=== PATIENT | female | born 1955 | race American Indian/Alaskan Native ===

== ENCOUNTER 2016-08-23 09:50 | Inpatient (IN) | payer BC ==
[~2016-08-23] VITALS: Ht 167.6 cm; Wt 124.0 kg
[2016-08-23 10:28] LABS: ADD SCAN DIFF NO
[2016-08-23 10:29] LABS: BASOPHILS % 0.4 % (0.0-2.0); EOSINOPHILS # 0.1 10^3/ul (0.0-0.5); EOSINOPHILS % 1.3 % (0.0-7.0); HEMATOCRIT 34.5 % (37.0-47.0); HEMOGLOBIN 11.2 g/dl (12.0-16.0); LYMPHOCYTES # 1.4 10^3/ul (0.8-2.9); MEAN CORPUSCULAR HGB CONC 32.5 g/dl (32.0-37.0); MEAN CORPUSCULAR VOLUME 86.3 fl (82.0-101.0); MEAN PLATELET VOLUME 9.9 fl (7.4-10.4); MONOCYTE # 0.4 10^3/ul (0.3-0.9); MONOCYTES % 5.1 % (0.0-11.0); NEUTROPHILS % 72.5 % (39.0-77.0); PLATELET COUNT 206 10^3/UL (140-415); RED CELL DISTRIBUTION WIDTH 12.9 % (11.5-14.5); WHITE BLOOD COUNT 6.9 10^3/ul (4.8-10.8)
[2016-08-23] MEDS ORDERED: LISI40TA9 PO (10:33)
[2016-08-23] MEDS ORDERED: METO-407 PO (10:33)
[2016-08-23] MEDS ORDERED: PRAV20TA63 PO (10:33)
[2016-08-23] MEDS ORDERED: MTF1000T PO (10:33)
[2016-08-23] MEDS ORDERED: AMLO-147 PO (10:33)
[2016-08-23] MEDS ORDERED: PUMP MISCELLANEOUS SC (10:33)
[2016-08-23] MEDS ORDERED: ASPI-664 PO (10:33)
[2016-08-23 10:54] LABS: ALBUMIN 4.1 g/dl (3.3-4.9); CHLORIDE 99 mmol/L (97-110); SODIUM 140 mmol/L (135-144)
[2016-08-23 10:55] LABS: POTASSIUM 3.8 mmol/L (3.5-5.1)
[2016-08-23 10:56] LABS: CREATININE 0.61 mg/dl (0.44-1.00)
[2016-08-23 10:57] LABS: ALANINE AMINOTRANSFERASE 74 IU/L (13-69); ALBUMIN/GLOBULIN RATIO 1.32; ALKALINE PHOSPHATASE 119 IU/L (42-121); ANION GAP 17 (8-16); ASPARTATE AMINO TRANSFERASE 31 IU/L (15-46); BILIRUBIN,INDIRECT 0.8 mg/dl (0-1.1); BILIRUBIN,TOTAL 0.8 mg/dl (0.2-1.3); BLOOD UREA NITROGEN 14 mg/dl (7-20); CALCIUM 8.8 mg/dl (8.4-10.2); CARBON DIOXIDE 28 mmol/L (21-31); GLUCOSE 197 mg/dl (70-220); TOTAL PROTEIN 7.2 g/dl (6.1-8.1)
[2016-08-23] MEDS ORDERED: FUROSEMIDE 40 MG INJ IV ONE (11:00)
[2016-08-23] MEDS ORDERED: ASPIRIN 81 MG TAB PO ONE (11:00)
[2016-08-23] MEDS ORDERED: ENALAPRILAT 1.25 MG INJ IV ONE (11:00)
--- NOTE | 2016-08-23 11:20 | RADRPT ---
PROCEDURE: XR Chest 1 view. CLINICAL INDICATION: Shortness of breath. TECHNIQUE: AP views of the chest were obtained. COMPARISON: None. FINDINGS: The heart is large. Calcified atherosclerosis is noted in the aorta. Central pulmonary vascular con gestion and interstitial prominence is seen in both lungs. Patchy infiltrates are noted in the righ t lower lobe and may be combined with small pleural effusion. Scattered atelectasis is seen in the left lower lobe. Osseous structures are intact. IMPRESSION: Cardiomegaly with calcified atherosclerosis in the aorta. Central pulmonary vascular congestion and interstitial prominence in both lungs. Patchy infiltrates in the right lower lobe, possibly combined small pleural effusion. Scattered atelectasis in the left lower lobe. RPTAT: AA .Jai Godinez MD, Date Time Electronically viewed and signed by .Jai Godinez MD, MD on 08/23/2016 11:20 .P/
[2016-08-23 11:23] LABS: TROPONIN-I < 0.012 ng/ml (0.00-0.12)
--- NOTE | 2016-08-23 12:36 | ERA ---
ER Documentation Chief Complaint Date/Time DATE: 08/23/16 TIME: 12:35 Chief Complaint CHEST PAIN . SOB X 3 DAYS HPI 61-year-old woman presents with 1 week of increased lower extremity swelling, pressure-like chest pain 2 days which is been nonradiating and nonexertional and intermittent episodes of shortness of breath and dyspnea on exertion. Patient states respiratory symptoms have been present for about 1-2 weeks and she is also experienced orthopnea and paroxysmal nocturnal dyspnea. Patient denies history of CHF. Patient denies fevers or chills, no vomiting or diarrhea. ROS All systems reviewed and are negative except as per history of present illness. Medications Home Meds Reported Medications Miscellaneous* PUMP (Miscellaneous* PUMP) 1 Each Pump.resvr, 44 UNITS SC Basaglar @Hs, EA 08/23/16 Metoprolol Tartrate* (Lopressor*) 100 Mg Tablet, 100 MG PO BID, #60 TAB 08/23/16 Amlodipine Besylate* (Amlodipine Besylate*) 10 Mg Tablet, 10 MG PO DAILY, #30 TAB 08/23/16 Aspirin* (Aspirin* (EC)) 81 Mg Tablet.dr, 81 MG PO DAILY, TAB 08/23/16 Lisinopril* (Lisinopril*) 40 Mg Tablet, 40 MG PO DAILY, #30 TAB 08/23/16 Pravastatin Sodium* (Pravastatin Sodium*) 20 Mg Tablet, 20 MG PO HS, TAB 08/23/16 Metformin* (Glucophage*) 1,000 Mg Tablet, 1000 MG PO WITH BREAKFAST DINNE, #60 TAB 08/23/16 Allergies Allergies: Coded Allergies: No Known Allergy (Unverified , 08/23/16) PMhx/Soc Morbid obesity, hypertension, diabetes mellitus, hypercholesterolemia History of Surgery: No Anesthesia Reaction: No Hx Neurological Disorder: No Hx Respiratory Disorders: No Hx Cardiac Disorders: Yes (HIGH CHOLESTEROL, HTN) Hx Psychiatric Problems: No Hx Miscellaneous Medical Probl: Yes (DM) Hx Alcohol Use: No Hx Substance Use: No Hx Tobacco Use: No Smoking Status: Never smoker FmHx Family History: diabetes Physical Exam Vitals Vital Signs Date Time Temp Pulse Resp B/P Pulse Ox O2 Delivery O2 Flow Rate FiO2 08/23/16 09:56 98.1 81 18 196/85 96 Physical Exam GENERAL: Well-developed, well-nourished, dyspneic, afebrile HEENT: Moist mucous membranes, pink conjunctiva, no cervical spine tenderness or step-off deformities, no goiter, no jaundice or icterus, extraocular movements intact without pain. No submandibular induration, and no pharyngeal erythema NEURO: Alert and oriented 3, cranial nerves II through XII intact bilaterally, pupils equal round reactive to light, no focal deficits or facial asymmetry, sensation intact distally Strength 5/5 in upper and lower extremities bilaterally CARDIAC: Regular rate and rhythm, no murmurs rubs or gallops LUNGS: Bilateral crackles and poor entry bilaterally, no wheezing or stridor ABDOMEN: Soft nontender, no guarding, no rigidity, no rebound, no psoas sign no obturator sign. Normoactive bowel sounds SKIN: Warm and dry to touch, no abrasions, contusions, or hematomas, no lacerations, no ecchymosis, no target lesions, and without ulcers EXTREMITIES: No clubbing cyanosis, 3+ pitting edema in the lower extremities bilaterally, no Homans sign, no popliteal cord sign. Distal pulses equal and bilateral PSYCH: Normal affect without agitation or irritability Result Diagram: 08/23/16 1017 08/23/16 1017 Results 24 hrs Laboratory Tests Test 08/23/16 10:17 White Blood Count 6.910^3/ul Red Blood Count 4.0010^6/ul Hemoglobin 11.2g/dl Hematocrit 34.5% Mean Corpuscular Volume 86.3fl Mean Corpuscular Hemoglobin 28.0pg Mean Corpuscular Hemoglobin Concent 32.5g/dl Red Cell Distribution Width 12.9% Platelet Count 22982^3/UL Mean Platelet Volume 9.9fl Neutrophils % 72.5% Lymphocytes % 20.0% Monocytes % 5.1% Eosinophils % 1.3% Basophils % 0.4% Nucleated Red Blood Cells % 0.0/100WBC Neutrophils # 5.010^3/ul Lymphocytes # 1.410^3/ul Monocytes # 0.410^3/ul Eosinophils # 0.110^3/ul Basophils # 0.010^3/ul Nucleated Red Blood Cells # 0.010^3/ul Sodium Level 140mmol/L Potassium Level 3.8mmol/L Chloride Level 99mmol/L Carbon Dioxide Level 28mmol/L Anion Gap 17 Blood Urea Nitrogen 14mg/dl Creatinine 0.61mg/dl Glucose Level 197mg/dl Calcium Level 8.8mg/dl Total Bilirubin 0.8mg/dl Direct Bilirubin 0.00mg/dl Indirect Bilirubin 0.8mg/dl Aspartate Amino Transf (AST/SGOT) 31IU/L Alanine Aminotransferase (ALT/SGPT) 74IU/L Alkaline Phosphatase 119IU/L Troponin I < 0.012ng/ml Total Protein 7.2g/dl Albumin 4.1g/dl Globulin 3.10g/dl Albumin/Globulin Ratio 1.32 Lipase 54U/L Current Medications Medications (Trade) Dose Ordered Sig/Haley Route PRN Reason Start Time Stop Time Status Last Admin Dose Admin Aspirin (Aspirin) 324 mg ONCE ONCE PO 08/23/16 11:00 08/23/16 11:01 DC 08/23/16 10:50 Furosemide (Lasix) 80 mg ONCE ONCE IV 08/23/16 11:00 08/23/16 11:01 DC 08/23/16 10:49 Enalaprilat (Vasotec Iv) 1.25 mg ONCE ONCE IV 08/23/16 11:00 08/23/16 11:01 DC 08/23/16 10:50 Procedures/MDM IV line was established patient was placed on cardiac monitor technician rhythm strip revealed a sinus rhythm at about 80 bpm with upright P and T waves. Patient was afebrile. EKG performed, read by me: 75 bpm, normal sinus rhythm, normal axis, no acute ST segment changes, narrow QRS complex, with good R-wave progression in precordial leads. I administered aspirin 324 mg p.o. for cardioprotective measures have enalapril 1.25 mg IV for hypertension. Patient also received furosemide 80 mg IV 1 for diuresis. CBC and electrolytes were unremarkable, liver function tests are normal, troponin was negative, BNP about 600 and elevated, thyroid panel normal. Patient will be admitted to telemetry setting for continued medical management cardiology consultation. Blood pressure improved. Departure Diagnosis: Primary Impression: Chest pain Qualified Code: R07.9 - Chest pain, unspecified type Additional Impressions: Hypertension Qualified Code: I10 - Essential hypertension CHF (congestive heart failure) Qualified Code: I50.21 - Acute systolic congestive heart failure Condition: PARKER Castro MD August 23, 2016 12:36
[2016-08-23 12:57] VITALS: TEMP 98.3
[2016-08-23 13:36] LABS: FREE T3 4.47 pg/ml (2.77-5.27)
[2016-08-23 13:50] LABS: THYROID STIMULATING HORMONE 1.67 MIU/L (0.465-4.680)
[2016-08-23 14:07] VITALS: BP 153/64; PULSE 73; RESP 18
[2016-08-23 14:08] VITALS: Ht 167.6 cm; Wt 124.0 kg
[2016-08-23] MEDS ORDERED: ACETAMINOPHEN 325 MG TAB PO PRN (15:00)
[2016-08-23] MEDS ORDERED: LISINOPRIL 10 MG TAB PO SCH (15:00)
[2016-08-23] MEDS ORDERED: GLUCOSE GEL 15 GRAM TUBE PO PRN ×2 (16:00)
[2016-08-23] MEDS ORDERED: GLUCOSE GEL 15 GRAM TUBE BUCCAL PRN (16:00)
[2016-08-23] MEDS ORDERED: DEXTROSE 50% 50 ML SYRINGE IV PRN ×2 (16:00)
[2016-08-23] MEDS ORDERED: GLUCAGON 1 MG INJ IM PRN (16:00)
[2016-08-23 16:16] VITALS: PULSE 61
[2016-08-23 16:58] VITALS: BP 151/67; RESP 18
[2016-08-23] MEDS: INSULIN ASPART [NOVOLOG] 3 ML PEN SC SCH ×2 (17:13→21:28)
[2016-08-23] MEDS: metFORMIN 500 MG TAB PO SCH (18:37)
[2016-08-23] MEDS: FUROSEMIDE 20 MG INJ IV SCH (18:37)
[2016-08-23 20:03] VITALS: BP 145/61; RESP 19
[2016-08-23 20:19] VITALS: PULSE 65
[2016-08-23] MEDS: METOPROLOL 100 MG TAB PO SCH (21:25)
[2016-08-23] MEDS: ATORVASTATIN 10 MG TAB PO SCH (21:25)
[2016-08-23] MEDS: POTASSIUM CHLORIDE (SR) 20 MEQ TAB PO SCH (21:25)
[2016-08-23] MEDS: INSULIN GLARGINE [LANtus] 3 ML PEN SC SCH (21:33)
--- NOTE | 2016-08-23 22:31 | HP ---
DATE OF ADMISSION: 08/23/2016 CHIEF COMPLAINT: Chest pain and shortness of breath. HISTORY OF PRESENT ILLNESS: The patient is a 61-year-old morbidly obese female with BMI of 44.1. T he patient has history of hypertension, diabetes and dyslipidemia, came to ER with increasing shortn ess of breath and chest pain for about 3 days. The patient reported the chest pain was mostly exert ional and was in anterior upper chest. The patient reported the symptoms got worse this morning, an d therefore she decided to come to ER. The patient had a negative troponin, negative EKG for any ac [place] ST or T changes. Chest x-ray was positive for CHF. The patient was given IV Lasix and also rec eived aspirin. The patient seems to have gotten better and currently says that she has no chest cali n. The patient did have mild orthopnea. No reported paroxysmal nocturnal dyspnea, although patient did have increasing leg edema for last few days. The patient denied any history of fever or chills . No history of headache, dizziness, syncope. No history of abdominal pain. No history of resting leg pain. No history of any focal weakness. No history of fever or chills. No history of dysuria or hematuria. Rest of the review of systems was unremarkable. PAST SURGICAL HISTORY: The patient is status post right breast biopsy which was benign. The patien t also had some sort of gynecological surgery for urinary incontinence. ALLERGIES: NONE. SOCIAL HISTORY: No smoking, no alcohol. FAMILY HISTORY: The patient's father of lung cancer. Mother had some cardiac issues, but she could not specify. PHYSICAL EXAMINATION: GENERAL: The patient is conscious, awake, alert. VITAL SIGNS: Temperature 98.6, pulse 65, respirations 18, blood pressure 151/67, O2 saturation 95% on room air. HEENT: Atraumatic, normocephalic. Conjunctivae and lids normal. Oropharynx clear. NECK: Supple. No mass, no thyromegaly. CHEST: Diminished air entry at bases. No use of accessory muscles. CARDIOVASCULAR: S1, S2 normal. No murmur. ABDOMEN: Soft, obese. EXTREMITIES: Bilateral edema. Pedal pulses palpable. SKIN: Without acute rash. NEUROLOGIC: The patient is awake, alert, fairly oriented with no gross focal deficit. LABORATORY DATA: WBC 6.9, hemoglobin 9.2, platelets 206. Chemistry: Sodium ____, potassium 3.8, B UN 14, creatinine 0.6. Random glucose 197, repeat glucose 121. BNP 568. Troponin negative. TSH 1 .6. Lipid panel pending. Echo pending. IMPRESSION: 1. Chest pain, rule out myocardial infarction. 2. Congestive heart failure. 3. Hypertension. 4. Diabetes mellitus. 5. Hyperlipidemia. 6. Obesity. PLAN: The patient admitted on telemetry floor. The patient will be started on aspirin, Coreg, neha nopril and IV Lasix. Will use Lovenox for DVT prophylaxis. Will put her on sliding scale insulin a nd Glucophage. Will continue statins and will obtain lipid panel. Will obtain echocardiogram to as sess LV function and valvular function. Further recommendation will depend on patient's hospital co urse and recommendation from Dr. Curry, who will be consulted from cardiology standpoint. Dictated By: ESPERANZA SAMPSON/BRISEIDA Conf#: [id number] DID#: [id number]
[2016-08-24] VITALS (12 sets, daily range): BP systolic 118–154; BP diastolic 43–68; PULSE 52–61; RESP 18–20
[2016-08-24] MEDS: ACCU-CHEK XX SCH (02:00)
--- NOTE | 2016-08-24 03:11 | CONS ---
DATE OF ADMISSION: 08/23/2016 DATE OF CONSULTATION: 08/23/2016 TYPE OF CONSULTATION: Cardiology. REASON FOR CONSULTATION: Congestive heart failure exacerbation as well as chest pain. REQUESTING PHYSICIAN: Esperanza Damon MD HISTORY OF PRESENT ILLNESS: Ms. Alvarez is a 61-year-old female with a history of hypertension , dyslipidemia, diabetes mellitus who presented with 2 days of worsening lower extremity edema, dysp anupam on minimal exertion and substernal chest pain, per ER note describes a pressure-like sensation b ut per my description and conversation with patient a burning sensation at rest. Upon arrival, temp erature 98.1, blood pressure markedly elevated at 196/85, pulse 81, respiratory rate 18, satting 96% . The patient's labs: A white cell count of 6.9, hemoglobin 11.2, platelet count of 206. Sodium o f 140, potassium 3.8, creatinine 0.6, BUN 14. Troponin negative. BNP 568. TSH of 1.67, free T4 of 1.28. The patient underwent a chest x-ray revealing cardiomegaly, calcified atherosclerosis in the aorta, central pulmonary vascular congestion, ____ prominence of both lungs, patchy infiltrates in the right lower lobe, possibly combined small pleural effusion ____ in left lower lobe. The patient 's electrocardiogram with normal sinus rhythm, rate of 75, normal axis, normal intervals, anterior T -wave inversion. The patient was subsequently admitted to the floor and since admit to the floor de nies ongoing chest pain. PAST MEDICAL HISTORY: As above in HPI. MEDICATIONS CURRENTLY IN HOSPITAL: 1. Lovenox ____ mg subcutaneous daily. 2. Aspirin 325 mg daily. 3. Norvasc 10 mg daily. 4. Lisinopril 40 mg daily. 5. Potassium chloride 20 mEq b.i.d. 6. Metoprolol 100 mg b.i.d. 7. Lantus 44 units at bedtime. 8. Lipitor 10 mg daily. 9. Insulin sliding scale. 10. Metformin. 11. Lasix 20 mg IV b.i.d. 12. Tylenol p.r.n. ALLERGIES: NO KNOWN DRUG ALLERGIES. SOCIAL HISTORY: No tobacco, ETOH, illicit drug use. FAMILY HISTORY: No history of sudden cardiac or early CAD. REVIEW OF SYSTEMS: As above in HPI. CONSTITUTIONAL: No fevers, chills. PULMONARY: No current shortness of breath. CARDIOVASCULAR: Intermittent chest pain, dyspnea on exertion. GASTROINTESTINAL: No vomiting. GENITOURINARY: No hematuria. MUSCULOSKELETAL: Degenerative joint disease. PSYCHIATRIC: The patient denies depression. NEUROLOGIC: No documented history of CVA. PHYSICAL EXAMINATION: VITAL SIGNS: Temperature of 98, blood pressure most recently 151/67, pulse 65, respiratory rate 18, satting 95%. GENERAL: The patient is alert, awake, complaining of mild shortness of breath. NECK: JVP approximately 9 cm water. CHEST: Decreased breath sounds at base bilaterally. HEART: Regular rate, rhythm. Normal S1, S2. I/ systolic murmur. ABDOMEN: Positive bowel sounds. Soft. EXTREMITIES: Trace edema. Pulses 1+ bilaterally at posterior tibial. LABORATORY DATA: As above in HPI. No further labs for my review at this time. IMAGING STUDIES: As above in HPI. No further imaging studies for my review at this time. ELECTROCARDIOGRAM: As above in HPI. No further electrocardiograms for my review at this time. IMPRESSION: 1. Congestive heart failure exacerbation, question systolic versus diastolic, likely acute on chron ic. 2. Hypertension. 3. Chest pain, assess for acute coronary syndrome with pain resolved at this time, negative troponi n x1. 4. Possible associated pneumonia by chest x-ray. 5. Increased BNP consistent with congestive heart failure exacerbation. 6. Dyslipidemia, on statin therapy. 7. Hypertension, mildly elevated. 8. Diabetes mellitus. 9. Anemia. RECOMMENDATIONS: 1. At this time would maintain patient on telemetry monitoring to follow rhythm and rate control cl osely. 2. Would continue the patient's current aspirin for prophylaxis against cardiovascular events. 3. Continue the patient's current Norvasc, Zestril and metoprolol, following heart rate and blood p ressure closely. 4. Continue the patient's current statin therapy and adjust it according to a [facility]. 5. Will complete a rule-out for myocardial infarction, ensure that the patient's EKG abnormalities are chronic in nature and not due to any recent acute coronary syndrome such as acute myocardial inf arction. 6. Check a 2D echocardiogram to further assess the patient's ejection fraction, wall motion, rule o ut any major valve abnormalities. 7. Will follow the patient's blood pressure on increased doses of lisinopril and beta azael, have been was written for today, significantly increased doses, as well as Norvasc. 8. Would continue the patient's Lasix diuresis, following strict I's and O's and creatinine to grad e diuresis closely. 9. When patient's volume status improves and the patient is able to lie flat, will consider stress testing this patient to further assess significance of chest pain and would consider possibility of antibiotic therapy in this patient with possible associated pneumonia as well by chest x-ray. Thank you for allowing me to take part in the care of this patient. I will continue to follow along very closely with you with further recommendations to be made as the patient progresses through her inpatient hospital clinical course. Dictated By: CHANTAL LAW/BRISEIDA Conf#: [id number] DID#: [id number] CC: ESPERANZA DAMON MD;*EndCC*
[2016-08-24] MEDS: FUROSEMIDE 20 MG INJ IV SCH ×2 (05:17→17:15)
[2016-08-24] MEDS: ASPIRIN 325 MG TAB PO SCH (08:10)
[2016-08-24] MEDS: LISINOPRIL 20 MG TAB PO SCH (08:10)
[2016-08-24] MEDS: metFORMIN 500 MG TAB PO SCH ×2 (08:10→17:15)
[2016-08-24] MEDS: POTASSIUM CHLORIDE (SR) 20 MEQ TAB PO SCH ×2 (08:10→20:45)
[2016-08-24] MEDS: ENOXAPARIN 40 MG/0.4 ML SYG SC SCH (08:11)
[2016-08-24] MEDS: METOPROLOL 100 MG TAB PO SCH ×2 (08:12→20:46)
[2016-08-24] MEDS: AMLODIPINE 10 MG TAB PO SCH (08:12)
[2016-08-24] MEDS: INSULIN ASPART [NOVOLOG] 3 ML PEN SC SCH ×4 (08:12→20:47)
[2016-08-24 08:37] LABS: ADD SCAN DIFF NO
[2016-08-24 08:51] LABS: BASOPHILS % 0.3 % (0.0-2.0); EOSINOPHILS # 0.1 10^3/ul (0.0-0.5); EOSINOPHILS % 1.3 % (0.0-7.0); HEMATOCRIT 37.3 % (37.0-47.0); HEMOGLOBIN 11.6 g/dl (12.0-16.0); LYMPHOCYTES # 1.2 10^3/ul (0.8-2.9); MEAN CORPUSCULAR HEMOGLOBIN 27.2 pg (29.0-33.0); MEAN CORPUSCULAR HGB CONC 31.1 g/dl (32.0-37.0); MEAN CORPUSCULAR VOLUME 87.4 fl (82.0-101.0); MEAN PLATELET VOLUME 10.2 fl (7.4-10.4); MONOCYTE # 0.3 10^3/ul (0.3-0.9); MONOCYTES % 4.9 % (0.0-11.0); NEUTROPHIL # 4.7 10^3/ul (1.6-7.5); NEUTROPHILS % 74.2 % (39.0-77.0); PLATELET COUNT 248 10^3/UL (140-415); RED BLOOD COUNT 4.27 10^6/ul (4.20-5.40); RED CELL DISTRIBUTION WIDTH 13.3 % (11.5-14.5); WHITE BLOOD COUNT 6.4 10^3/ul (4.8-10.8)
[2016-08-24] MEDS ORDERED: ASPIRIN (EC) 81 MG TAB PO SCH (09:00)
[2016-08-24 09:25] LABS: ALANINE AMINOTRANSFERASE 66 IU/L (13-69); ALBUMIN 4.2 g/dl (3.3-4.9); ALBUMIN/GLOBULIN RATIO 1.35; ALKALINE PHOSPHATASE 118 IU/L (42-121); ANION GAP 13 (8-16); ASPARTATE AMINO TRANSFERASE 32 IU/L (15-46); BILIRUBIN,INDIRECT 1.1 mg/dl (0-1.1); BILIRUBIN,TOTAL 1.1 mg/dl (0.2-1.3); BLOOD UREA NITROGEN 17 mg/dl (7-20); CALCIUM 9.3 mg/dl (8.4-10.2); CARBON DIOXIDE 33 mmol/L (21-31); CHLORIDE 95 mmol/L (97-110); CHOL/HDL RATIO 5.1 RATIO; CHOLESTEROL 196 mg/dl (100-200); CREATININE 0.68 mg/dl (0.44-1.00); GLUCOSE 189 mg/dl (70-220); HDL CHOLESTEROL 38 mg/dl (35-98); POTASSIUM 4.2 mmol/L (3.5-5.1); SODIUM 137 mmol/L (135-144); TOTAL PROTEIN 7.3 g/dl (6.1-8.1); TRIGLYCERIDES 173 mg/dl (0-149)
[2016-08-24 09:27] LABS: TROPONIN-I < 0.012 ng/ml (0.00-0.12)
--- NOTE | 2016-08-24 10:19 | CONS ---
Date/Time of Note Date/Time of Note DATE: 08/24/16 TIME: 10:17 Assessment/Plan Assessment/Plan Additional Assessment/Plan 1. Congestive heart failure exacerbation, question systolic versus diastolic, likely acute on chronic- con't gentle diuresis, better overall. 2. Hypertension - still on high side, will add therapy now. 3. Chest pain, assess for acute coronary syndrome with pain resolved at this time, negative troponin x1. 4. Possible associated pneumonia by chest x-ray- anti-bx to follow. 5. Increased BNP consistent with congestive heart failure exacerbation. 6. Dyslipidemia, on statin therapy. 7. Hypertension, mildly elevated. 8. Diabetes mellitus. 9. Anemia. Consultation Date/Type/Reason Admit Date/Time August 23, 2016 at 12:20 Initial Consult Date 24 HR Interval Summary Free Text/Dictation NO acute change - stable on tele - con't to adjust Rx - stable urine output. ROS: No fever, no chills, no nausea, no vomiting, no diarrhea/constipation No recent weight changes No chest pain, no PND, no orthopnea No dizziness, blurred vision No thirst, no heat or cold intolerance Exam/Review of Systems Vital Signs Vitals Vital Signs Date Time Temp Pulse Resp B/P Pulse Ox O2 Delivery O2 Flow Rate FiO2 08/24/16 08:36 52 08/24/16 08:05 98.2 18 154/68 91 08/23/16 14:07 Room Air Intake and Output 08/23/16 08/23/16 08/24/16 15:00 23:00 07:00 Intake Total 250 ml 500 ml Balance 250 ml 500 ml Exam General: WN/WD/NAD, AOx 2-3 HEENT: Unicetric/atraumatic/EOMI (follows commands) NECK: JVD elevated, no thyromegaly Lymph: no lymphadenopathy HEART: regular with no S3, II/ systolic murmur at apex LUNGS: Coarse sounds ABD: soft, NT, ND, +BS : Intact Neuro: non focal SKIN: chronic changes EXT: trace edema Results Result Diagram: 08/24/16 0750 08/24/16 0750 Results 24 hrs Laboratory Tests Test 08/23/16 12:49 08/23/16 17:07 08/23/16 19:56 08/23/16 20:09 B-Type Natriuretic Peptide 568 H 510 H Thyroid Stimulating Hormone (TSH) 1.670 Free Thyroxine 1.28 Free Triiodothyronine (T3) pg/mL 4.47 Bedside Glucose 121 203 Troponin I < 0.012 Test 08/24/16 02:18 08/24/16 07:50 08/24/16 08:08 Bedside Glucose 144 186 White Blood Count 6.4 Red Blood Count 4.27 Hemoglobin 11.6 L Hematocrit 37.3 Mean Corpuscular Volume 87.4 Mean Corpuscular Hemoglobin 27.2 L Mean Corpuscular Hemoglobin Concent 31.1 L Red Cell Distribution Width 13.3 Platelet Count 248 # Mean Platelet Volume 10.2 Neutrophils % 74.2 Lymphocytes % 19.0 Monocytes % 4.9 Eosinophils % 1.3 Basophils % 0.3 Nucleated Red Blood Cells % 0.0 Neutrophils # 4.7 Lymphocytes # 1.2 Monocytes # 0.3 Eosinophils # 0.1 Basophils # 0.0 Nucleated Red Blood Cells # 0.0 Sodium Level 137 Potassium Level 4.2 Chloride Level 95 L Carbon Dioxide Level 33 H Anion Gap 13 Blood Urea Nitrogen 17 Creatinine 0.68 Glucose Level 189 Calcium Level 9.3 Total Bilirubin 1.1 Direct Bilirubin 0.00 Indirect Bilirubin 1.1 Aspartate Amino Transf (AST/SGOT) 32 Alanine Aminotransferase (ALT/SGPT) 66 Alkaline Phosphatase 118 Troponin I < 0.012 Total Protein 7.3 Albumin 4.2 Globulin 3.10 Albumin/Globulin Ratio 1.35 Triglycerides Level 173 H Cholesterol Level 196 LDL Cholesterol, Calculated 123 HDL Cholesterol 38 Cholesterol/HDL Ratio 5.1 Medications Medications Current Medications Potassium Chloride (Klor-Con 20) 20 meq BID PO Last administered on 08/24/16 08 :10; Admin Dose 20 MEQ; Start 08/23/16 at 21:00 Enoxaparin Sodium (Lovenox) 40 mg DAILY SC Last administered on 08/24/16 08:11 ; Admin Dose 40 MG; Start 08/24/16 at 09:00 Aspirin (Aspirin) 325 mg DAILY PO Last administered on 08/24/16 08:10; Admin Dose 325 MG; Start 08/24/16 at 09:00 Acetaminophen (Tylenol Tab) 650 mg Q4H PRN PO PAIN AND OR ELEVATED TEMP; Start 08/23/16 at 15:00 Diagnostic Test (Pha) (Accu-Chek) 1 ea 02 XX ; Start 08/24/16 at 02:00 Miscellaneous Information 1 ea NOTE XX ; Start 08/23/16 at 16:00 Glucose (Glutose) 15 gm Q15M PRN PO DECREASED GLUCOSE; Start 08/23/16 at 16:00 Glucose (Glutose) 22.5 gm Q15M PRN PO DECREASED GLUCOSE; Start 08/23/16 at 16:00 Dextrose (D50w Syringe) 25 ml Q15M PRN IV DECREASED GLUCOSE; Start 08/23/16 at 16:00 Dextrose (D50w Syringe) 50 ml Q15M PRN IV DECREASED GLUCOSE; Start 08/23/16 at 16:00 Glucagon (Glucagen) 1 mg Q15M PRN IM DECREASED GLUCOSE; Start 08/23/16 at 16:00 Glucose (Glutose) 15 gm Q15M PRN BUCCAL DECREASED GLUCOSE; Start 08/23/16 at 16: 00 Amlodipine Besylate (Norvasc) 10 mg DAILY PO Last administered on 08/24/16 08: 12; Admin Dose 10 MG; Start 08/24/16 at 09:00 Lisinopril (Zestril) 40 mg DAILY PO Last administered on 08/24/16 08:10; Admin Dose 40 MG; Start 08/24/16 at 09:00 Metoprolol Tartrate (Lopressor) 100 mg BID PO Last administered on 08/24/16 08: 12; Admin Dose 100 MG; Start 08/23/16 at 21:00 Insulin Glargine (Lantus) 44 unit HS SC Last administered on 08/23/16 21:33; Admin Dose 44 UNIT; Start 08/23/16 at 21:00 Atorvastatin Calcium (Lipitor) 10 mg DAILY@21 PO Last administered on 08/23/16 21:25; Admin Dose 10 MG; Start 08/23/16 at 21:00 RUSTAM HOLLIS MD August 24, 2016 10:19
[2016-08-24] MEDS ORDERED: FUROSEMIDE 20 MG INJ IV ONE (10:30)
--- NOTE | 2016-08-24 14:12 | RADRPT ---
Vent Rate: 57 bpm RR Interval: 0 msec ID Interval: 194 msec QRS Duration: 102 msec QT Interval: 494 msec QTC Interval: 480 msec P-R-T [place]: 45 - 17 - 42 degrees Sinus bradycardia Nonspecific T wave abnormality Prolonged QT Abnormal ECG Electronically Signed By: Floyd Ramirez [id number]
--- NOTE | 2016-08-24 19:15 | PN ---
Date/Time of Note Date/Time of Note DATE: 08/24/16 TIME: 19:12 Assessment/Plan VTE Prophylaxis VTE Prophylaxis Intervention: SCD's Lines/Catheters IV [facility]ter Type (from [facility] Saline Lock Urinary Cath still in place: No Assessment/Plan Assessment/Plan 1. Chest pain, rule out myocardial infarction. Troponin is negative 2. Dr. Curry is following and cardiology consultation. 2. Congestive heart failure. Continue Lasix monitor electrolytes. 3. Hypertension. Continue Lopressor lisinopril and Norvasc. 4. Diabetes mellitus. Continue metformin Lantus and NovoLog. 5. Hyperlipidemia. Continue statins. 6. Obesity. Further recommendations based on clinical course. End of care discussed with Dr. Damon. Subjective 24 Hr Interval Summary Free Text/Dictation Patient denies chest pain denies short of breath. Exam/Review of Systems Vital Signs Vitals Vital Signs Date Time Temp Pulse Resp B/P Pulse Ox O2 Delivery O2 Flow Rate FiO2 08/24/16 17:40 60 08/24/16 15:57 98.1 18 140/60 99 08/23/16 14:07 Room Air Intake and Output 08/23/16 08/23/16 08/24/16 15:00 23:00 07:00 Intake Total 250 ml 500 ml Balance 250 ml 500 ml Exam Constitutional: alert, obese, oriented Psych: no complaints Head: atraumatic, normocephalic Eyes: nl conjunctiva ENMT: nl external ears & nose Neck: non-tender, supple Respiratory: clear to auscultation Cardiovascular: nl pulses, regular rate and rhythm Gastrointestinal: non-tender, soft Musculoskeletal: nl extremities to inspection Extremities: normal pulses Neurological: BACON STRINGER II-XII intact Results Result Diagram: 08/24/16 0750 08/24/16 0750 Results 24 hrs Laboratory Tests Test 08/23/16 19:56 08/23/16 20:09 08/24/16 02:18 08/24/16 07:50 Troponin I < 0.012 < 0.012 B-Type Natriuretic Peptide 510 H Bedside Glucose 203 144 White Blood Count 6.4 Red Blood Count 4.27 Hemoglobin 11.6 L Hematocrit 37.3 Mean Corpuscular Volume 87.4 Mean Corpuscular Hemoglobin 27.2 L Mean Corpuscular Hemoglobin Concent 31.1 L Red Cell Distribution Width 13.3 Platelet Count 248 # Mean Platelet Volume 10.2 Neutrophils % 74.2 Lymphocytes % 19.0 Monocytes % 4.9 Eosinophils % 1.3 Basophils % 0.3 Nucleated Red Blood Cells % 0.0 Neutrophils # 4.7 Lymphocytes # 1.2 Monocytes # 0.3 Eosinophils # 0.1 Basophils # 0.0 Nucleated Red Blood Cells # 0.0 Sodium Level 137 Potassium Level 4.2 Chloride Level 95 L Carbon Dioxide Level 33 H Anion Gap 13 Blood Urea Nitrogen 17 Creatinine 0.68 Glucose Level 189 Hemoglobin A1c 8.1 H Calcium Level 9.3 Total Bilirubin 1.1 Direct Bilirubin 0.00 Indirect Bilirubin 1.1 Aspartate Amino Transf (AST/SGOT) 32 Alanine Aminotransferase (ALT/SGPT) 66 Alkaline Phosphatase 118 Total Protein 7.3 Albumin 4.2 Globulin 3.10 Albumin/Globulin Ratio 1.35 Triglycerides Level 173 H Cholesterol Level 196 LDL Cholesterol, Calculated 123 HDL Cholesterol 38 Cholesterol/HDL Ratio 5.1 Test 08/24/16 08:08 08/24/16 12:19 08/24/16 17:13 Bedside Glucose 186 180 240 H Medications Medications Current Medications Potassium Chloride (Klor-Con 20) 20 meq BID PO Last administered on 08/24/16 08 :10; Admin Dose 20 MEQ; Start 08/23/16 at 21:00 Enoxaparin Sodium (Lovenox) 40 mg DAILY SC Last administered on 08/24/16 08:11 ; Admin Dose 40 MG; Start 08/24/16 at 09:00 Aspirin (Aspirin) 325 mg DAILY PO Last administered on 08/24/16 08:10; Admin Dose 325 MG; Start 08/24/16 at 09:00 Acetaminophen (Tylenol Tab) 650 mg Q4H PRN PO PAIN AND OR ELEVATED TEMP; Start 08/23/16 at 15:00 Diagnostic Test (Pha) (Accu-Chek) 1 ea 02 XX ; Start 08/24/16 at 02:00 Miscellaneous Information 1 ea NOTE XX ; Start 08/23/16 at 16:00 Glucose (Glutose) 15 gm Q15M PRN PO DECREASED GLUCOSE; Start 08/23/16 at 16:00 Glucose (Glutose) 22.5 gm Q15M PRN PO DECREASED GLUCOSE; Start 08/23/16 at 16:00 Dextrose (D50w Syringe) 25 ml Q15M PRN IV DECREASED GLUCOSE; Start 08/23/16 at 16:00 Dextrose (D50w Syringe) 50 ml Q15M PRN IV DECREASED GLUCOSE; Start 08/23/16 at 16:00 Glucagon (Glucagen) 1 mg Q15M PRN IM DECREASED GLUCOSE; Start 08/23/16 at 16:00 Glucose (Glutose) 15 gm Q15M PRN BUCCAL DECREASED GLUCOSE; Start 08/23/16 at 16: 00 Amlodipine Besylate (Norvasc) 10 mg DAILY PO Last administered on 08/24/16 08: 12; Admin Dose 10 MG; Start 08/24/16 at 09:00 Lisinopril (Zestril) 40 mg DAILY PO Last administered on 08/24/16 08:10; Admin Dose 40 MG; Start 08/24/16 at 09:00 Metoprolol Tartrate (Lopressor) 100 mg BID PO Last administered on 08/24/16 08: 12; Admin Dose 100 MG; Start 08/23/16 at 21:00 Insulin Glargine (Lantus) 44 unit HS SC Last administered on 08/23/16 21:33; Admin Dose 44 UNIT; Start 08/23/16 at 21:00 Atorvastatin Calcium (Lipitor) 10 mg DAILY@21 PO Last administered on 08/23/16 21:25; Admin Dose 10 MG; Start 08/23/16 at 21:00 STU SAWANT August 24, 2016 19:15
[2016-08-24] MEDS: ATORVASTATIN 10 MG TAB PO SCH (20:45)
[2016-08-24] MEDS: INSULIN GLARGINE [LANtus] 3 ML PEN SC SCH (20:47)
[2016-08-25] VITALS (12 sets, daily range): BP systolic 116–176; BP diastolic 45–76; PULSE 50–59; RESP 17–18
[2016-08-25] MEDS: ACCU-CHEK XX SCH (02:00)
[2016-08-25] MEDS: FUROSEMIDE 20 MG INJ IV SCH ×2 (05:31→17:04)
[2016-08-25 07:36] LABS: ADD SCAN DIFF NO
[2016-08-25 07:52] LABS: BASOPHILS % 0.4 % (0.0-2.0); EOSINOPHILS # 0.1 10^3/ul (0.0-0.5); HEMATOCRIT 39.2 % (37.0-47.0); HEMOGLOBIN 12.3 g/dl (12.0-16.0); LYMPHOCYTES # 1.6 10^3/ul (0.8-2.9); LYMPHOCYTES % 23.6 % (15.0-51.0); MEAN CORPUSCULAR HEMOGLOBIN 27.3 pg (29.0-33.0); MEAN CORPUSCULAR HGB CONC 31.4 g/dl (32.0-37.0); MEAN CORPUSCULAR VOLUME 87.1 fl (82.0-101.0); MONOCYTE # 0.4 10^3/ul (0.3-0.9); MONOCYTES % 5.9 % (0.0-11.0); NEUTROPHIL # 4.6 10^3/ul (1.6-7.5); NEUTROPHILS % 67.8 % (39.0-77.0); PLATELET COUNT 253 10^3/UL (140-415); RED CELL DISTRIBUTION WIDTH 13.1 % (11.5-14.5); WHITE BLOOD COUNT 6.8 10^3/ul (4.8-10.8)
[2016-08-25 07:58] LABS: POTASSIUM 4.2 mmol/L (3.5-5.1)
[2016-08-25 08:00] LABS: CREATININE 0.72 mg/dl (0.44-1.00)
[2016-08-25 08:01] LABS: CALCIUM 9.5 mg/dl (8.4-10.2)
[2016-08-25] MEDS: INSULIN ASPART [NOVOLOG] 3 ML PEN SC SCH ×4 (08:38→21:00)
[2016-08-25] MEDS: LISINOPRIL 20 MG TAB PO SCH (08:57)
[2016-08-25] MEDS: ASPIRIN 325 MG TAB PO SCH (08:57)
[2016-08-25] MEDS: METOPROLOL 100 MG TAB PO SCH ×2 (08:57→21:39)
[2016-08-25] MEDS: AMLODIPINE 10 MG TAB PO SCH (08:57)
[2016-08-25] MEDS: metFORMIN 500 MG TAB PO SCH ×2 (08:58→17:04)
[2016-08-25] MEDS: POTASSIUM CHLORIDE (SR) 20 MEQ TAB PO SCH ×2 (08:58→21:38)
[2016-08-25] MEDS: ENOXAPARIN 40 MG/0.4 ML SYG SC SCH (08:59)
--- NOTE | 2016-08-25 09:26 | RADRPT ---
PROCEDURE: XR Chest AP portable CLINICAL INDICATION: Possible pneumonia TECHNIQUE: An AP portable radiograph of the chest was submitted. COMPARISON: None. FINDINGS: Support Hardware: None Cardiovascular: The heart appears mildly enlarged. The aorta is atherosclerotic appearing orally pi riform plantar vasculature appears unremarkable. Lung Enriquez: A poor inspiratory effort compresses lung parenchyma exaggerating the interstitial yesi ings but no alveolar infiltrate or nodule is evident. Pleural Spaces: No pneumothorax or pleural effusion is identified. Osseous Structures: Moderate degenerative spine changes are noted. Soft Tissues: The soft tissues appear generous. IMPRESSION: 1. Mild cardiomegaly with atherosclerotic changes to the aorta without CHF. 2. Suboptimal inspiration compresses lung parenchyma with no alveolar infiltrate evident. 3. Moderate degenerative spine changes. Physician Fatou Date Time Electronically viewed and signed by Physician Fatou on 08/25/2016 09:26 /
--- NOTE | 2016-08-25 15:51 | CONS ---
Date/Time of Note Date/Time of Note DATE: 08/25/16 TIME: 15:00 Assessment/Plan Assessment/Plan Chief Complaint/Hosp Course IMPRESSION: 1. Congestive heart failure exacerbation, question systolic versus diastolic, likely acute on chronic-slowly improving volume status 2. Hypertension. 3. Chest pain, assess for acute coronary syndrome with pain resolved at this time, negative troponin x1. 4. Possible associated pneumonia by chest x-ray. 5. Increased BNP consistent with congestive heart failure exacerbation.-? systolic versus diastolic will f/u eco 6. Dyslipidemia, on statin therapy.LDL 123 HDL 38 7. Hypertension, mildly elevated. 8. Diabetes mellitus. 9. Anemia. Recc: -Tele -serial ecg's -Continue norvasc/zestril/BB -Continue lasix diuresis -Contiue statin -f/u echo -Consider lexiscan stress test in am Problems: Consultation Date/Type/Reason Admit Date/Time August 23, 2016 at 12:20 Initial Consult Date 08/23/16 Type of Consultation: Cardiology Reason for Consultation CHF Referring Provider: ESPERANZA SAMANO MD Exam/Review of Systems Vital Signs Vitals Vital Signs Date Time Temp Pulse Resp B/P Pulse Ox O2 Delivery O2 Flow Rate FiO2 08/25/16 12:16 54 08/25/16 11:30 98.3 18 139/58 94 08/23/16 14:07 Room Air Intake and Output 08/24/16 08/24/16 08/25/16 15:00 23:00 07:00 Intake Total 500 ml 350 ml Output Total 1250 ml Balance -750 ml 350 ml Exam Review of Systems: CONSTITUTIONAL: No fevers, chills. PULMONARY: No sob CARDIOVASCULAR: No chest pain/palpitations GASTROINTESTINAL: No nausea/vomiting. GENITOURINARY: No hematuria/dysuria. MUSCULOSKELETAL: No myagias/arthalgias. PSYCHIATRIC: The patient denies depression. NEUROLOGIC: No weakness Constitutional: alert Psych: no complaints Head: normocephalic ENMT: mucosa pink and moist Neck: jvd (9 cm water), supple Respiratory: clear to auscultation Cardiovascular: regular rate and rhythm Gastrointestinal: non-tender, soft Musculoskeletal: muscle tone (normal) Extremities: edema (none) Neurological: other (No focal deficits) Results Result Diagram: 5/10/17 0705 5/10/17 0705 Results 24 hrs Laboratory Tests Test 08/24/16 17:13 08/24/16 20:23 08/25/16 07:05 08/25/16 08:22 Bedside Glucose 240 H 172 188 White Blood Count 6.8 Red Blood Count 4.50 Hemoglobin 12.3 Hematocrit 39.2 Mean Corpuscular Volume 87.1 Mean Corpuscular Hemoglobin 27.3 L Mean Corpuscular Hemoglobin Concent 31.4 L Red Cell Distribution Width 13.1 Platelet Count 253 Mean Platelet Volume 10.0 Neutrophils % 67.8 Lymphocytes % 23.6 Monocytes % 5.9 Eosinophils % 2.0 Basophils % 0.4 Nucleated Red Blood Cells % 0.0 Neutrophils # 4.6 Lymphocytes # 1.6 Monocytes # 0.4 Eosinophils # 0.1 Basophils # 0.0 Nucleated Red Blood Cells # 0.0 Sodium Level 140 Potassium Level 4.2 Chloride Level 92 L Carbon Dioxide Level 33 H Anion Gap 19 H Blood Urea Nitrogen 19 Creatinine 0.72 Glucose Level 205 Calcium Level 9.5 Test 08/25/16 11:56 Bedside Glucose 179 Medications Medications Current Medications Potassium Chloride (Klor-Con 20) 20 meq BID PO Last administered on 08/25/16 08:58; Admin Dose 20 MEQ; Start 08/23/16 at 21:00 Enoxaparin Sodium (Lovenox) 40 mg DAILY SC Last administered on 08/25/16 08:59 ; Admin Dose 40 MG; Start 08/24/16 at 09:00 Aspirin (Aspirin) 325 mg DAILY PO Last administered on 08/25/16 08:57; Admin Dose 325 MG; Start 08/24/16 at 09:00 Acetaminophen (Tylenol Tab) 650 mg Q4H PRN PO PAIN AND OR ELEVATED TEMP; Start 08/23/16 at 15:00 Diagnostic Test (Pha) (Accu-Chek) 1 ea 02 XX ; Start 08/24/16 at 02:00 Miscellaneous Information 1 ea NOTE XX ; Start 08/23/16 at 16:00 Glucose (Glutose) 15 gm Q15M PRN PO DECREASED GLUCOSE; Start 08/23/16 at 16:00 Glucose (Glutose) 22.5 gm Q15M PRN PO DECREASED GLUCOSE; Start 08/23/16 at 16:00 Dextrose (D50w Syringe) 25 ml Q15M PRN IV DECREASED GLUCOSE; Start 08/23/16 at 16:00 Dextrose (D50w Syringe) 50 ml Q15M PRN IV DECREASED GLUCOSE; Start 08/23/16 at 16:00 Glucagon (Glucagen) 1 mg Q15M PRN IM DECREASED GLUCOSE; Start 08/23/16 at 16:00 Glucose (Glutose) 15 gm Q15M PRN BUCCAL DECREASED GLUCOSE; Start 08/23/16 at 16: 00 Amlodipine Besylate (Norvasc) 10 mg DAILY PO Last administered on 08/25/16 08: 57; Admin Dose 10 MG; Start 08/24/16 at 09:00 Lisinopril (Zestril) 40 mg DAILY PO Last administered on 08/25/16 08:57; Admin Dose 40 MG; Start 08/24/16 at 09:00 Metoprolol Tartrate (Lopressor) 100 mg BID PO Last administered on 08/25/16 08 :57; Admin Dose 100 MG; Start 08/23/16 at 21:00 Insulin Glargine (Lantus) 44 unit HS SC Last administered on 08/24/16 20:47; Admin Dose 44 UNIT; Start 08/23/16 at 21:00 Atorvastatin Calcium (Lipitor) 10 mg DAILY@21 PO Last administered on 08/24/16 20:45; Admin Dose 10 MG; Start 08/23/16 at 21:00 CHANTAL CLARK August 25, 2016 15:50
--- NOTE | 2016-08-25 17:39 | PN ---
Date/Time of Note Date/Time of Note DATE: 08/25/16 TIME: 17:37 Assessment/Plan VTE Prophylaxis VTE Prophylaxis Intervention: SCD's Lines/Catheters IV Catheter Type (from [facility]): Saline Lock Urinary Cath still in place: No Assessment/Plan Chief Complaint/Hosp Course Assessment/Plan 1. Chest pain, rule out myocardial infarction. Troponin is negative 2. Dr. Curry is following and cardiology consultation. Pending Lexiscan tomorrow. 2. Congestive heart failure. Continue Lasix monitor electrolytes. 3. Hypertension. Continue Lopressor lisinopril and Norvasc. 4. Diabetes mellitus. Continue metformin Lantus and NovoLog. 5. Hyperlipidemia. Continue statins. 6. Obesity. Weight loss advised, Further recommendations based on clinical course. Plan of care discussed with Dr. Damon. Problems: Subjective 24 Hr Interval Summary Free Text/Dictation Patient denies chest pain denies shortness of breath, pending Lexiscan tomorrow Exam/Review of Systems Vital Signs Vitals Vital Signs Date Time Temp Pulse Resp B/P Pulse Ox O2 Delivery O2 Flow Rate FiO2 08/25/16 16:14 56 08/25/16 15:41 98.3 18 117/57 93 08/23/16 14:07 Room Air Intake and Output 08/24/16 08/24/16 08/25/16 15:00 23:00 07:00 Intake Total 500 ml 350 ml Output Total 1250 ml Balance -750 ml 350 ml Exam Constitutional: alert, obese, oriented Psych: no complaints Head: atraumatic, normocephalic Eyes: nl conjunctiva ENMT: nl external ears & nose Neck: non-tender, supple Respiratory: clear to auscultation Cardiovascular: nl pulses, regular rate and rhythm Gastrointestinal: non-tender, soft Musculoskeletal: nl extremities to inspection Extremities: normal pulses Neurological: RETAIL SALESPERSON II-XII intact Results Result Diagram: 08/25/1670408/25/16 07 Results 24 hrs Laboratory Tests Test 08/24/16 20:23 08/25/16 07:05 08/25/16 08:22 08/25/16 11:56 Bedside Glucose 172 188 179 White Blood Count 6.8 Red Blood Count 4.50 Hemoglobin 12.3 Hematocrit 39.2 Mean Corpuscular Volume 87.1 Mean Corpuscular Hemoglobin 27.3 L Mean Corpuscular Hemoglobin Concent 31.4 L Red Cell Distribution Width 13.1 Platelet Count 253 Mean Platelet Volume 10.0 Neutrophils % 67.8 Lymphocytes % 23.6 Monocytes % 5.9 Eosinophils % 2.0 Basophils % 0.4 Nucleated Red Blood Cells % 0.0 Neutrophils # 4.6 Lymphocytes # 1.6 Monocytes # 0.4 Eosinophils # 0.1 Basophils # 0.0 Nucleated Red Blood Cells # 0.0 Sodium Level 140 Potassium Level 4.2 Chloride Level 92 L Carbon Dioxide Level 33 H Anion Gap 19 H Blood Urea Nitrogen 19 Creatinine 0.72 Glucose Level 205 Calcium Level 9.5 Test 08/25/16 17:02 Bedside Glucose 208 Medications Medications Current Medications Potassium Chloride (Klor-Con 20) 20 meq BID PO Last administered on 08/25/16 08:58; Admin Dose 20 MEQ; Start 08/23/16 at 21:00 Enoxaparin Sodium (Lovenox) 40 mg DAILY SC Last administered on 08/25/16 08:59 ; Admin Dose 40 MG; Start 08/24/16 at 09:00 Aspirin (Aspirin) 325 mg DAILY PO Last administered on 08/25/16 08:57; Admin Dose 325 MG; Start 08/24/16 at 09:00 Acetaminophen (Tylenol Tab) 650 mg Q4H PRN PO PAIN AND OR ELEVATED TEMP; Start 08/23/16 at 15:00 Diagnostic Test (Pha) (Accu-Chek) 1 ea 02 XX ; Start 08/24/16 at 02:00 Miscellaneous Information 1 ea NOTE XX ; Start 08/23/16 at 16:00 Glucose (Glutose) 15 gm Q15M PRN PO DECREASED GLUCOSE; Start 08/23/16 at 16:00 Glucose (Glutose) 22.5 gm Q15M PRN PO DECREASED GLUCOSE; Start 08/23/16 at 16:00 Dextrose (D50w Syringe) 25 ml Q15M PRN IV DECREASED GLUCOSE; Start 08/23/16 at 16:00 Dextrose (D50w Syringe) 50 ml Q15M PRN IV DECREASED GLUCOSE; Start 08/23/16 at 16:00 Glucagon (Glucagen) 1 mg Q15M PRN IM DECREASED GLUCOSE; Start 08/23/16 at 16:00 Glucose (Glutose) 15 gm Q15M PRN BUCCAL DECREASED GLUCOSE; Start 08/23/16 at 16: 00 Amlodipine Besylate (Norvasc) 10 mg DAILY PO Last administered on 08/25/16 08: 57; Admin Dose 10 MG; Start 08/24/16 at 09:00 Lisinopril (Zestril) 40 mg DAILY PO Last administered on 08/25/16 08:57; Admin Dose 40 MG; Start 08/24/16 at 09:00 Metoprolol Tartrate (Lopressor) 100 mg BID PO Last administered on 08/25/16 08 :57; Admin Dose 100 MG; Start 08/23/16 at 21:00 Insulin Glargine (Lantus) 44 unit HS SC Last administered on 08/24/16 20:47; Admin Dose 44 UNIT; Start 08/23/16 at 21:00 Atorvastatin Calcium (Lipitor) 10 mg DAILY@21 PO Last administered on 08/24/16 20:45; Admin Dose 10 MG; Start 08/23/16 at 21:00 STU SAWANT August 25, 2016 17:39
[2016-08-25] MEDS: ATORVASTATIN 10 MG TAB PO SCH (21:38)
[2016-08-25] MEDS: INSULIN GLARGINE [LANtus] 3 ML PEN SC SCH (21:40)
[2016-08-26] VITALS (12 sets, daily range): BP systolic 113–137; BP diastolic 50–63; PULSE 50–64; RESP 16–20
[2016-08-26] MEDS: ACCU-CHEK XX SCH (02:00)
[2016-08-26] MEDS: FUROSEMIDE 20 MG INJ IV SCH (06:13)
[2016-08-26] MEDS: metFORMIN 500 MG TAB PO SCH ×2 (08:00→17:40)
[2016-08-26] MEDS: ASPIRIN 325 MG TAB PO SCH (08:37)
[2016-08-26 08:38] LABS: ADD SCAN DIFF NO
[2016-08-26] MEDS: METOPROLOL 100 MG TAB PO SCH ×2 (08:38→21:05)
[2016-08-26] MEDS: LISINOPRIL 20 MG TAB PO SCH (08:38)
[2016-08-26] MEDS: AMLODIPINE 10 MG TAB PO SCH (08:38)
[2016-08-26] MEDS: POTASSIUM CHLORIDE (SR) 20 MEQ TAB PO SCH ×2 (08:38→21:05)
[2016-08-26] MEDS: ENOXAPARIN 40 MG/0.4 ML SYG SC SCH (08:41)
[2016-08-26 08:47] LABS: BASOPHILS % 0.1 % (0.0-2.0); EOSINOPHILS # 0.5 10^3/ul (0.0-0.5); HEMATOCRIT 39.4 % (37.0-47.0); HEMOGLOBIN 12.7 g/dl (12.0-16.0); LYMPHOCYTES # 1.4 10^3/ul (0.8-2.9); LYMPHOCYTES % 19.4 % (15.0-51.0); MEAN CORPUSCULAR HEMOGLOBIN 27.8 pg (29.0-33.0); MEAN CORPUSCULAR HGB CONC 32.2 g/dl (32.0-37.0); MEAN CORPUSCULAR VOLUME 86.2 fl (82.0-101.0); MONOCYTE # 0.5 10^3/ul (0.3-0.9); MONOCYTES % 6.5 % (0.0-11.0); NEUTROPHILS % 67.6 % (39.0-77.0); PLATELET COUNT 260 10^3/UL (140-415); RED BLOOD COUNT 4.57 10^6/ul (4.20-5.40); RED CELL DISTRIBUTION WIDTH 13.2 % (11.5-14.5); WHITE BLOOD COUNT 7.4 10^3/ul (4.8-10.8)
[2016-08-26] MEDS ORDERED: INSULIN ASPART [NOVOLOG] 3 ML PEN SC SCH ×2 (09:00→17:35)
[2016-08-26] MEDS ORDERED: Insulin NOVOLOG SS MILD Algorithm (NPO/TPN/ENTERAL FEEDS) SC SCH (09:00)
[2016-08-26 09:12] LABS: POTASSIUM 3.8 mmol/L (3.5-5.1)
[2016-08-26 09:15] LABS: CREATININE 0.72 mg/dl (0.44-1.00)
[2016-08-26 09:16] LABS: CALCIUM 9.3 mg/dl (8.4-10.2)
[2016-08-26] MEDS ORDERED: REGADENOSON 0.4 MG/5 ML SYG ONE (11:06)
--- NOTE | 2016-08-26 12:01 | CONS ---
Date/Time of Note Date/Time of Note DATE: 08/26/16 TIME: 11:58 Assessment/Plan Assessment/Plan Chief Complaint/Hosp Course IMPRESSION: 1. Congestive heart failure exacerbation, question systolic versus diastolic, likely acute on chronic-slowly improving volume status 2. Hypertension. 3. Chest pain, assess for acute coronary syndrome with pain resolved at this time, negative troponin x1. 4. Possible associated pneumonia by chest x-ray. 5. Increased BNP consistent with congestive heart failure exacerbation.-? systolic versus diastolic will f/u eco 6. Dyslipidemia, on statin therapy.LDL 123 HDL 38 7. Hypertension, mildly elevated. 8. Diabetes mellitus. 9. Anemia. Recc: -Tele -serial ecg's -Continue norvasc/zestril/BB -Continue lasix diuresis but will change to PO -Contiue statin -f/u echo -Consider lexiscan stress today Problems: Consultation Date/Type/Reason Admit Date/Time August 23, 2016 at 12:20 Initial Consult Date 08/23/16 Type of Consultation: Cardiology Reason for Consultation Chest pain Referring Provider: ESPERANZA SAMANO MD Exam/Review of Systems Vital Signs Vitals Vital Signs Date Time Temp Pulse Resp B/P Pulse Ox O2 Delivery O2 Flow Rate FiO2 08/26/16 08:47 54 08/26/16 07:51 97.8 18 122/60 90 08/23/16 14:07 Room Air Intake and Output 08/25/16 08/25/16 08/26/16 15:00 23:00 07:00 Intake Total 1500 ml 400 ml Balance 1500 ml 400 ml Exam Review of Systems: CONSTITUTIONAL: No fevers, chills. PULMONARY: No sob CARDIOVASCULAR: No chest pain/palpitations GASTROINTESTINAL: No nausea/vomiting. GENITOURINARY: No hematuria/dysuria. MUSCULOSKELETAL: No myagias/arthalgias. PSYCHIATRIC: The patient denies depression. NEUROLOGIC: No weakness Constitutional: alert, oriented ENMT: mucosa pink and moist Neck: jvd (9 cm water), supple Respiratory: clear to auscultation Cardiovascular: regular rate and rhythm Gastrointestinal: non-tender, soft Musculoskeletal: muscle tone (normal) Extremities: edema (trace) Neurological: other (None) Results Result Diagram: 08/26/16 0800 08/26/16 0800 Results 24 hrs Laboratory Tests Test 08/25/16 17:02 08/25/16 21:36 08/26/16 07:15 08/26/16 08:00 Bedside Glucose 208 167 172 White Blood Count 7.4 Red Blood Count 4.57 Hemoglobin 12.7 Hematocrit 39.4 Mean Corpuscular Volume 86.2 Mean Corpuscular Hemoglobin 27.8 L Mean Corpuscular Hemoglobin Concent 32.2 Red Cell Distribution Width 13.2 Platelet Count 260 Mean Platelet Volume 10.0 Neutrophils % 67.6 Lymphocytes % 19.4 Monocytes % 6.5 Eosinophils % 6.0 Basophils % 0.1 Nucleated Red Blood Cells % 0.0 Neutrophils # 5.0 Lymphocytes # 1.4 Monocytes # 0.5 Eosinophils # 0.5 Basophils # 0.0 Nucleated Red Blood Cells # 0.0 Sodium Level 139 Potassium Level 3.8 Chloride Level 95 L Carbon Dioxide Level 31 Anion Gap 17 H Blood Urea Nitrogen 20 Creatinine 0.72 Glucose Level 165 Calcium Level 9.3 Test 08/26/16 08:37 Bedside Glucose 157 Medications Medications Current Medications Potassium Chloride (Klor-Con 20) 20 meq BID PO Last administered on 08/26/16 08:38; Admin Dose 20 MEQ; Start 08/23/16 at 21:00 Enoxaparin Sodium (Lovenox) 40 mg DAILY SC Last administered on 08/26/16 08:41 ; Admin Dose 40 MG; Start 08/24/16 at 09:00 Aspirin (Aspirin) 325 mg DAILY PO Last administered on 08/26/16 08:37; Admin Dose 325 MG; Start 08/24/16 at 09:00 Acetaminophen (Tylenol Tab) 650 mg Q4H PRN PO PAIN AND OR ELEVATED TEMP; Start 08/23/16 at 15:00 Diagnostic Test (Pha) (Accu-Chek) 1 ea 02 XX ; Start 08/24/16 at 02:00 Miscellaneous Information 1 ea NOTE XX ; Start 08/23/16 at 16:00 Glucose (Glutose) 15 gm Q15M PRN PO DECREASED GLUCOSE; Start 08/23/16 at 16:00 Glucose (Glutose) 22.5 gm Q15M PRN PO DECREASED GLUCOSE; Start 08/23/16 at 16:00 Dextrose (D50w Syringe) 25 ml Q15M PRN IV DECREASED GLUCOSE; Start 08/23/16 at 16:00 Dextrose (D50w Syringe) 50 ml Q15M PRN IV DECREASED GLUCOSE; Start 08/23/16 at 16:00 Glucagon (Glucagen) 1 mg Q15M PRN IM DECREASED GLUCOSE; Start 08/23/16 at 16:00 Glucose (Glutose) 15 gm Q15M PRN BUCCAL DECREASED GLUCOSE; Start 08/23/16 at 16: 00 Amlodipine Besylate (Norvasc) 10 mg DAILY PO Last administered on 08/26/16 08: 38; Admin Dose 10 MG; Start 08/24/16 at 09:00 Lisinopril (Zestril) 40 mg DAILY PO Last administered on 08/26/16 08:38; Admin Dose 40 MG; Start 08/24/16 at 09:00 Metoprolol Tartrate (Lopressor) 100 mg BID PO Last administered on 08/26/16 08 :38; Admin Dose 100 MG; Start 08/23/16 at 21:00 Insulin Glargine (Lantus) 44 unit HS SC Last administered on 08/25/16 21:40; Admin Dose 44 UNIT; Start 08/23/16 at 21:00 Atorvastatin Calcium (Lipitor) 10 mg DAILY@21 PO Last administered on 21:38; Admin Dose 10 MG; Start 08/23/16 at 21:00 Insulin Aspart (Novolog Insulin Pen) (Adult SC Insulin - Mild Algorithm)... Q4 SC Last administered on 08/26/16 08:40; Admin Dose 1 UNIT; Start 08/26/16 at 09:00 CHANTAL CLARK August 26, 2016 12:01
--- NOTE | 2016-08-26 12:55 | RADRPT ---
PROCEDURE: Lexiscan myocardial perfusion study CLINICAL INDICATION: 61 -year-old patient complaining of chest pain. TECHNIQUE: Lexiscan 0.4 mg intravenously separate acquisition gated myocardial perfusion SPECT usi ng Tc 99m Myoview 36.0 and mCi intravenously at stress and Tc-99m Myoview, 11.3 mCi intravenously at rest was performed using the rest/stress sequence. Poststress Myoview SPECT images were obtained i n the supine position. COMPARISON: No prior studies. FINDINGS: Perfusion images reveal a small size mild to moderate in degree nonreversible perfusion defect in th e distal anterior, inferoapical and distal inferior zhu, which possibly related to soft tissue att enuation. Lexiscan post stress gated SPECT images demonstrate no wall motion abnormalities. IMPRESSION: 1. No evidence of stress-induced ischemia. 2. No wall motion abnormalities. 3. The left ventricle ejection fraction at stress is 66%. A call report was made to Dr. Curry at 12:52 p.m. on August 26, 2016. RPTAT: HH .Alma Velasco MD, Date Time Electronically viewed and signed by .Alma Velasco MD, on 08/26/2016 12:55 .L/
[2016-08-26] MEDS: INSULIN ASPART [NOVOLOG] 3 ML PEN SC SCH ×3 (13:00→21:09)
--- NOTE | 2016-08-26 14:22 | PN ---
Date/Time of Note Date/Time of Note DATE: 08/26/16 TIME: 14:06 Assessment/Plan VTE Prophylaxis VTE Prophylaxis Intervention: other Lines/Catheters IV Catheter Type (from Nrs): Peripheral IV Urinary Cath still in place: No Assessment/Plan Assessment/Plan 1. Chest pain, rule out myocardial infarction. Troponin is negative 2. Dr. Curry is following and cardiology consultation. SP Lexiscan - No evidence of stress-induced ischemia., No wall motion abnormalities., ejection fraction at stress is 66%. 2. Congestive heart failure. Continue Lasix monitor electrolytes. 3. Hypertension. Continue Lopressor lisinopril and Norvasc. 4. Diabetes mellitus. Continue metformin Lantus and NovoLog. 5. Hyperlipidemia. Continue statins. 6. Obesity. Weight loss advised, Further recommendations based on clinical course. Plan of care discussed with Dr. Damon. Subjective 24 Hr Interval Summary Free Text/Dictation resting, denies any chest pain, sp stress today. [place] dr staff. Constitutional: improved Eyes: no complaints ENT: no complaints Respiratory: no complaints Cardiovascular: no complaints Exam/Review of Systems Vital Signs Vitals Vital Signs Date Time Temp Pulse Resp B/P Pulse Ox O2 Delivery O2 Flow Rate FiO2 08/26/16 13:42 98.0 65 18 137/63 91 08/23/16 14:07 Room Air Intake and Output 08/25/16 08/25/16 08/26/16 15:00 23:00 07:00 Intake Total 1500 ml 400 ml Balance 1500 ml 400 ml Exam Constitutional: alert, oriented Psych: no complaints Eyes: nl sclera ENMT: nl external ears & nose Respiratory: clear to auscultation Cardiovascular: nl pulses Gastrointestinal: non-tender, soft Musculoskeletal: nl extremities to inspection Extremities: normal pulses Neurological: nl mental status Lymph: nontender Results Result Diagram: 08/26/16 0800 08/26/16 0800 Results 24 hrs Laboratory Tests Test 08/25/16 17:02 08/25/16 21:36 08/26/16 07:15 08/26/16 08:00 Bedside Glucose 208 167 172 White Blood Count 7.4 Red Blood Count 4.57 Hemoglobin 12.7 Hematocrit 39.4 Mean Corpuscular Volume 86.2 Mean Corpuscular Hemoglobin 27.8 L Mean Corpuscular Hemoglobin Concent 32.2 Red Cell Distribution Width 13.2 Platelet Count 260 Mean Platelet Volume 10.0 Neutrophils % 67.6 Lymphocytes % 19.4 Monocytes % 6.5 Eosinophils % 6.0 Basophils % 0.1 Nucleated Red Blood Cells % 0.0 Neutrophils # 5.0 Lymphocytes # 1.4 Monocytes # 0.5 Eosinophils # 0.5 Basophils # 0.0 Nucleated Red Blood Cells # 0.0 Sodium Level 139 Potassium Level 3.8 Chloride Level 95 L Carbon Dioxide Level 31 Anion Gap 17 H Blood Urea Nitrogen 20 Creatinine 0.72 Glucose Level 165 Calcium Level 9.3 Test 08/26/16 08:37 08/26/16 12:59 Bedside Glucose 157 124 Medications Medications Current Medications Potassium Chloride (Klor-Con 20) 20 meq BID PO Last administered on 08/26/16 08:38; Admin Dose 20 MEQ; Start 08/23/16 at 21:00 Enoxaparin Sodium (Lovenox) 40 mg DAILY SC Last administered on 08/26/16 08:41 ; Admin Dose 40 MG; Start 08/24/16 at 09:00 Aspirin (Aspirin) 325 mg DAILY PO Last administered on 08/26/16 08:37; Admin Dose 325 MG; Start 08/24/16 at 09:00 Acetaminophen (Tylenol Tab) 650 mg Q4H PRN PO PAIN AND OR ELEVATED TEMP; Start 08/23/16 at 15:00 Diagnostic Test (Pha) (Accu-Chek) 1 ea 02 XX ; Start 08/24/16 at 02:00 Miscellaneous Information 1 ea NOTE XX ; Start 08/23/16 at 16:00 Glucose (Glutose) 15 gm Q15M PRN PO DECREASED GLUCOSE; Start 08/23/16 at 16:00 Glucose (Glutose) 22.5 gm Q15M PRN PO DECREASED GLUCOSE; Start 08/23/16 at 16:00 Dextrose (D50w Syringe) 25 ml Q15M PRN IV DECREASED GLUCOSE; Start 08/23/16 at 16:00 Dextrose (D50w Syringe) 50 ml Q15M PRN IV DECREASED GLUCOSE; Start 08/23/16 at 16:00 Glucagon (Glucagen) 1 mg Q15M PRN IM DECREASED GLUCOSE; Start 08/23/16 at 16:00 Glucose (Glutose) 15 gm Q15M PRN BUCCAL DECREASED GLUCOSE; Start 08/23/16 at 16: 00 Amlodipine Besylate (Norvasc) 10 mg DAILY PO Last administered on 08/26/16 08: 38; Admin Dose 10 MG; Start 08/24/16 at 09:00 Lisinopril (Zestril) 40 mg DAILY PO Last administered on 08/26/16 08:38; Admin Dose 40 MG; Start 08/24/16 at 09:00 Metoprolol Tartrate (Lopressor) 100 mg BID PO Last administered on 08/26/16 08 :38; Admin Dose 100 MG; Start 08/23/16 at 21:00 Insulin Glargine (Lantus) 44 unit HS SC Last administered on 08/25/16 21:40; Admin Dose 44 UNIT; Start 08/23/16 at 21:00 Atorvastatin Calcium (Lipitor) 10 mg DAILY@21 PO Last administered on 21:38; Admin Dose 10 MG; Start 08/23/16 at 21:00 NICOLE ACOSTA August 26, 2016 14:17
[2016-08-26] MEDS: FUROSEMIDE 20 MG TAB PO SCH (17:40)
--- NOTE | 2016-08-26 20:18 | RADRPT ---
Echocardiogram Report Patient Name: PRADEEP MATUTE Gender: Female Date: 1955 Study Date: 24-Aug-2016 [address] [employer] [address]: [facility] Location: 5551 Ref. Physician: ESPERANZA SAMANO Quality: Good Procedures: Transthoracic echocardiogram with complete 2D, M-Mode, and doppler examination. Indications: Chest Pain. Congestive Heart Failure. 2D/M Mode Doppler Measurement Value Normal Ranges Measurement Value Normal Ranges LVIDd 2D 5.6 3.5 - 5.6 cm AV Peak Mickey 2.1 m/sec LVIDs 2D 3.7 2.1 - 4.1 cm AV Peak PG 17.0 mmHg FS 2D 34.6 % LVOT Peak Mickey 1.3 m/sec LVPWd 2D 0.9 0.6 - 1.1 cm LVOT Peak PG 6.0 mmHg IVSd 2D 0.9 0.6 - 1.1 cm MV E Peak Mickey 1.1 m/sec IVS/LVPW 2D 1.0 MV A Peak Mickey 0.5 m/sec AoR Diam 2D 2.8 2.0 - 3.7 cm MV E/A 2.1 LA/Ao 2D 2 0 - 1 MV Decel Time 215 msec EDV 2D 174.0 cm3 MV E/A 2.1 ESV 2D 48.6 cm3 TR Peak Mickey 2.5 m/sec LA Dimen 2D 4.2 2.3 - 4.0 cm TR Peak PG 25.0 mmHg RVSP 33.0 mmHg Findings Left Ventricle: Normal left ventricular systolic function. Normal left ventricular wall thickness. Mild enlargement of left ventricle cavity. Ejection fraction is visually estimated at 55 %. Right Ventricle: Normal right ventricular size. Normal right ventricular systolic function. Left Atrium: There is mild enlargement of left atrium. Right Atrium: The right atrium is normal in size. Mitral Valve: Mitral valve leaflets appear mildly thickened. Mild mitral annular calcification. Mild mitral valve regurgitation. Aortic Valve: No hemodynamically significant aortic stenosis by doppler. Aortic cusps appear mildly calcified. Trace aortic valve regurgitation. Tricuspid Valve: Normal appearance of the tricuspid valve. Estimated peak PA systolic pressure 33 mmHg. There is mild tricuspid regurgitation. Pulmonic Valve: Normal pulmonic valve appearance. Pericardium: Normal pericardium with no significant pericardial effusion. Aorta: Normal aortic root. IVC: Dilated IVC with respiratory collapse consistent with elevated right atrial pressure. Conclusions 1.Normal left ventricular systolic function. Normal left ventricular wall thickness. Mild enlargement of left ventricle cavity. Ejection fraction is visually estimated at 55 %. 2.There is mild enlargement of left atrium. 3.Mild mitral valve regurgitation. 4.Estimated peak PA systolic pressure 33 mmHg. There is mild tricuspid regurgitation. 5.Aortic cusps appear mildly calcified. Trace aortic valve regurgitation. Electronically Signed By: Derrek Curry 26-Aug-2016 20:18:23 -0700 Patient Name: PRADEEP MATUTE Study Date: 24-Aug-2016 [id number]
[2016-08-26] MEDS: ATORVASTATIN 10 MG TAB PO SCH (21:04)
[2016-08-26] MEDS: INSULIN GLARGINE [LANtus] 3 ML PEN SC SCH (21:08)
[2016-08-27] VITALS (9 sets, daily range): BP systolic 115–127; BP diastolic 54–60; PULSE 56–66; RESP 16–18
[2016-08-27] MEDS: ACCU-CHEK XX SCH (02:23)
[2016-08-27] MEDS: FUROSEMIDE 20 MG TAB PO SCH ×2 (06:08→18:00)
[2016-08-27] MEDS: INSULIN ASPART [NOVOLOG] 3 ML PEN SC SCH ×3 (07:30→17:35)
[2016-08-27] MEDS: METOPROLOL 100 MG TAB PO SCH (08:03)
[2016-08-27] MEDS: ASPIRIN 325 MG TAB PO SCH (08:03)
[2016-08-27] MEDS: LISINOPRIL 20 MG TAB PO SCH (08:04)
[2016-08-27] MEDS: POTASSIUM CHLORIDE (SR) 20 MEQ TAB PO SCH (08:04)
[2016-08-27] MEDS: AMLODIPINE 10 MG TAB PO SCH (08:04)
[2016-08-27] MEDS: metFORMIN 500 MG TAB PO SCH ×2 (08:04→18:05)
[2016-08-27] MEDS: ENOXAPARIN 40 MG/0.4 ML SYG SC SCH (08:08)
--- NOTE | 2016-08-27 14:59 | CONS ---
Date/Time of Note Date/Time of Note DATE: 08/27/16 TIME: 14:51 Assessment/Plan Assessment/Plan Chief Complaint/Hosp Course IMPRESSION: 1. Congestive heart failure exacerbation-diastolic acute on chronic Echo EF 55 % 08/24/16 2. Hypertension. 3. Chest pain, assess for acute coronary syndrome with pain resolved at this time, negative troponin x1. 4. Possible associated pneumonia by chest x-ray. 5. Increased BNP consistent with congestive heart failure exacerbation.-? systolic versus diastolic will f/u eco 6. Dyslipidemia, on statin therapy.LDL 123 HDL 38 7. Hypertension, mildly elevated. 8. Diabetes mellitus. 9. Anemia. Recc: -Tele -serial ecg's -Continue norvasc/zestril/BB -Continue lasix diuresis but will change to PO -Contiue statin Problems: Consultation Date/Type/Reason Admit Date/Time August 23, 2016 at 12:20 Initial Consult Date 08/23/16 Type of Consultation: Cardiology Reason for Consultation CHF/chest pain Referring Provider: ESPERANZA SAMANO MD Exam/Review of Systems Vital Signs Vitals Vital Signs Date Time Temp Pulse Resp B/P Pulse Ox O2 Delivery O2 Flow Rate FiO2 08/27/16 12:08 56 08/27/16 12:05 98.0 18 118/57 98 08/23/16 14:07 Room Air Intake and Output 08/26/16 08/26/16 08/27/16 15:00 23:00 07:00 Intake Total 600 ml 240 ml Balance 600 ml 240 ml Exam Review of Systems: CONSTITUTIONAL: No fevers, chills. PULMONARY: No sob CARDIOVASCULAR: No chest pain/palpitations GASTROINTESTINAL: No nausea/vomiting. GENITOURINARY: No hematuria/dysuria. MUSCULOSKELETAL: No myagias/arthalgias. PSYCHIATRIC: The patient denies depression. NEUROLOGIC: No weakness Constitutional: alert, oriented Psych: no complaints Head: normocephalic ENMT: mucosa pink and moist Neck: jvd (8 cm water), supple Respiratory: clear to auscultation Cardiovascular: regular rate and rhythm Gastrointestinal: non-tender, soft Musculoskeletal: muscle tone (normal) Extremities: other (no focal deficits) Results Result Diagram: 08/26/16 0800 08/26/16 0800 Results 24 hrs Laboratory Tests Test 08/26/16 17:36 08/26/16 21:04 08/27/16 01:48 08/27/16 07:46 Bedside Glucose 159 185 157 140 Test 08/27/16 11:55 Bedside Glucose 164 Medications Medications Current Medications Potassium Chloride (Klor-Con 20) 20 meq BID PO Last administered on 08/27/16 08:04; Admin Dose 20 MEQ; Start 08/23/16 at 21:00 Enoxaparin Sodium (Lovenox) 40 mg DAILY SC Last administered on 08/27/16 08:08 ; Admin Dose 40 MG; Start 08/24/16 at 09:00 Aspirin (Aspirin) 325 mg DAILY PO Last administered on 08/27/16 08:03; Admin Dose 325 MG; Start 08/24/16 at 09:00 Acetaminophen (Tylenol Tab) 650 mg Q4H PRN PO PAIN AND OR ELEVATED TEMP; Start 08/23/16 at 15:00 Diagnostic Test (Pha) (Accu-Chek) 1 ea 02 XX Last administered on 08/27/16 02: 23; Admin Dose 1 EA; Start 08/24/16 at 02:00 Miscellaneous Information 1 ea NOTE XX ; Start 08/23/16 at 16:00 Glucose (Glutose) 15 gm Q15M PRN PO DECREASED GLUCOSE; Start 08/23/16 at 16:00 Glucose (Glutose) 22.5 gm Q15M PRN PO DECREASED GLUCOSE; Start 08/23/16 at 16:00 Dextrose (D50w Syringe) 25 ml Q15M PRN IV DECREASED GLUCOSE; Start 08/23/16 at 16:00 Dextrose (D50w Syringe) 50 ml Q15M PRN IV DECREASED GLUCOSE; Start 08/23/16 at 16:00 Glucagon (Glucagen) 1 mg Q15M PRN IM DECREASED GLUCOSE; Start 08/23/16 at 16:00 Glucose (Glutose) 15 gm Q15M PRN BUCCAL DECREASED GLUCOSE; Start 08/23/16 at 16: 00 Amlodipine Besylate (Norvasc) 10 mg DAILY PO Last administered on 08/27/16 08: 04; Admin Dose 10 MG; Start 08/24/16 at 09:00 Lisinopril (Zestril) 40 mg DAILY PO Last administered on 08/27/16 08:04; Admin Dose 40 MG; Start 08/24/16 at 09:00 Metoprolol Tartrate (Lopressor) 100 mg BID PO Last administered on 08/27/16 08 :03; Admin Dose 100 MG; Start 08/23/16 at 21:00 Insulin Glargine (Lantus) 44 unit HS SC Last administered on 08/26/16 21:08; Admin Dose 44 UNIT; Start 08/23/16 at 21:00 Atorvastatin Calcium (Lipitor) 10 mg DAILY@21 PO Last administered on 21:04; Admin Dose 10 MG; Start 08/23/16 at 21:00 CHANTAL CLARK August 27, 2016 14:59
--- NOTE | 2016-08-27 15:44 | CARRPT ---
DATE OF PROCEDURE: 08/26/2016 REASON FOR STRESS TESTING: Chest pain, assess for ischemia. BASELINE VITAL SIGNS AND ELECTROCARDIOGRAM: Pulse 63, blood pressure 131/62. Electrocardiogram rev eals sinus bradycardia at 63 with left axis deviation and nonspecific ST-T abnormalities. PROCEDURE: The patient was given Lexiscan infusion protocol over 10 seconds followed by radiolabele d tracer. The patient's test was stopped due to completion of protocol. Maximal achieved blood pre ssure during the test 157/75. Maximum heart rate during the test 74. ELECTROCARDIOGRAM FINDINGS: The patient did not develop any new Lexiscan-induced ST or T-wave mcgowan es from baseline abnormalities. No documented PVCs, rare PAC. SYMPTOMS: The patient had complaints of stomach pain which resolved in recovery. No chest pain, no shortness of breath. IMPRESSION: 1. No Lexiscan-induced ST or T-wave changes from baseline abnormalities diagnostic of cardiac ische bharathi. 2. Complaints of abdominal pain which is improved during stress testing. No chest pain, no shortne ss of breath. 3. No documented premature ventricular contractions during Lexiscan infusion. 4. Report of nuclear images to follow in separate dictation. Dictated By: CHANTAL LAW/BRISEIDA Conf#: [id number] DID#: [id number]
[2016-08-27] MEDS ORDERED: LAS20 PO (16:54)
[2016-08-27] MEDS ORDERED: ASPI-664 PO (16:54)
--- NOTE | 2016-08-29 23:31 | DS ---
DATE OF ADMISSION: 08/23/2016 DATE OF DISCHARGE: 08/27/2016 FINAL DIAGNOSES: 1. Chest pain, acute coronary syndrome ruled out. 2. Congestive heart failure with exacerbation. 3. Hypertension. 4. Diabetes mellitus. 5. Hyperlipidemia. 6. Obesity. BRIEF HISTORY: The patient is a 61-year-old female with history of hypertension, diabetes, dyslipid emia and obesity. The patient presented to the emergency room for increasing shortness of breath an d chest pain for last couple of days. The patient had negative troponin and negative EKG for any ac rasheed ST and T changes. The patient's chest x-ray was indicative of congestive heart failure, and the patient was admitted for further evaluation and management. HOSPITAL COURSE: The patient was evaluated by Dr. Curry in cardiology consultation. The patient was given Lasix IV which was switched to p.o. The patient's cardiac enzymes were negative x3. The patient also underwent Lexiscan on 08/26/2016 which was negative for any cardiac ischemia. The morteza ent's blood sugar was closely monitored and well controlled. The patient's condition improved. The patient also underwent an echocardiogram which revealed preserved ejection fraction of 55% and norm al left ventricular systolic function. The patient was diagnosed with acute on chronic diastolic co ngestive heart failure with exacerbation. The patient's condition improved, and the patient was dis charged home. CONDITION ON DISCHARGE: Hemodynamically stable. ACTIVITY: As patient tolerates. DIET: 1800 ADA, 2 gram sodium diet. DISCHARGE MEDICATIONS: The patient was given prescription for Lasix 20 mg p.o. b.i.d. The patient is to continue on her home medication of: 1. Amlodipine. 2. Aspirin. 3. Lisinopril. 4. Metformin. 5. Lopressor. 6. Basaglar. 7. Pravastatin. DISCHARGE INSTRUCTIONS: The patient is instructed to follow up with Dr. Curry and to follow up wi th her primary care physician in 1 to 2 weeks. Interdisciplinary plan of care was established for this patient. Plan of care was discussed with Dr Farzad Damon. Dictated By: STU SAWANT [employer] for ESPERANZA DAMON MD SR/NTS Conf#: [id number] DID#: [id number]
== END 2016-08-27 18:22 | disposition home or self-care (01) | DRG 291 ==
LOC: E/R 09:50 → MS4 12:20 → UNDODISIN 08-26 18:30
PROVIDERS: ADMIT Internal Medicine; ATTEND Internal Medicine
DX: I11.0 Hypertensive heart disease with heart failure (principal); J18.9 Pneumonia, unspecified organism; E11.8 Type 2 diabetes mellitus with unspecified complications; Z68.41 Body mass index [BMI] 40.0-44.9, adult; R07.9 Chest pain, unspecified; E66.09 Other obesity due to excess calories; I50.43 Acute on chronic combined systolic (congestive) and diastolic (congestive) heart failure; E78.5 Hyperlipidemia, unspecified; D64.9 Anemia, unspecified
CPT/HCPCS: 36415; 71010; 78452; 80048; 80053; 80061; 82962; 83036; 83690; 83880; 84439; 84443; 84481; 84484; 85025; 93005; 93017; 93306; 96374; 96375; J1940; A9500; A9505; J1650; J1815; J2785